=== PATIENT | male | born 1970 | race Caucasian/White ===

== ENCOUNTER 2016-07-08 01:05 | Emergency (ER) | payer MEDICAID ==
[~2016-07-08] VITALS: Ht 157.5 cm; Wt 95.5 kg
[2016-07-08 02:04] VITALS: Ht 157.5 cm; Wt 95.5 kg
[2016-07-08] MEDS ORDERED: IBUPROFEN 600 MG TAB PO ONE (03:30)
[2016-07-08] MEDS ORDERED: hydrOXYzine HCL 100 MG INJ IM ONE (03:30)
--- NOTE | 2016-07-08 03:40 | ERD ---
ER Documentation Chief Complaint Date/Time DATE: 07/08/16 Chief Complaint Unable to sleep HPI The patient is a 45-year-old male who presents to the Emergency Department with complaint of difficulty sleeping for the past 6 days. Over the past week, he has been having a difficult time falling asleep, and once he falls asleep, he has been having a difficult time staying asleep for greater than 2-3 hours at a time. The patient states that he has been more anxious over the past several weeks, which has been made worse by his difficulty sleeping. He denies any current suicidal ideation, homicidal ideation, hallucinations or delusions. Denies recent drug use. Denies any chest pain, palpitations, shortness of breath. ROS All systems reviewed and are negative except as per history of present illness. Medications Home Meds Active Scripts Melatonin-Pyridoxine Hcl (Melatonin) 1-10 Mg Tablet, 1 TAB PO HS, #20 TAB Prov:VERNELL ELLIS PA-C 07/08/16 Hydroxyzine Hcl* (Hydroxyzine Hcl*) 50 Mg Tablet, 50 MG PO QHS Y for INSOMNIA, # 30 TAB Prov:VERNELL ELLIS PA-C 07/08/16 Allergies Allergies: Coded Allergies: No Known Allergy (Unverified , 07/08/16) Physical Exam Vitals Vital Signs Date Time Temp Pulse Resp B/P Pulse Ox O2 Delivery O2 Flow Rate FiO2 07/08/16 04:00 75 17 124/77 96 Room Air 07/08/16 02:04 97.7 84 20 126/72 98 Physical Exam Const: Well-developed, well-nourished, in no acute distress. Head: Atraumatic. Normocephalic. Eyes: Normal Conjunctiva ENT: Normal External Ears, Nose and Mouth. Neck: Supple. Full range of motion. Resp: Clear to auscultation bilaterally Cardio: Regular rate and rhythm, no murmurs Abd: Soft, non tender, non distended. Normal bowel sounds Skin: No petechiae or rashes Ext: No cyanosis, or edema Neur: Awake and alert Psych: Cooperative. Appropriate. Results 24 hrs Laboratory Tests Test 07/08/16 03:36 Bedside Glucose 102mg/dL Current Medications Medications (Trade) Dose Ordered Sig/Brinda Route PRN Reason Start Time Stop Time Status Last Admin Dose Admin Ibuprofen (Motrin) 600 mg ONCE ONCE PO 07/08/16 03:30 07/08/16 03:31 DC 07/08/16 03:45 Hydroxyzine HCl (Vistaril Inj) 50 mg ONCE ONCE IM 07/08/16 03:30 07/08/16 03:31 DC 07/08/16 03:53 Procedures/MDM Discussed patient case with Dr. Pineda, ED supervising physician, who recommends that the patient be discharged home. He may be given rx for Hydroxyzine, and advised to follow up with primary medical provider as an outpatient. Given that patient is denying suicidal and homicidal ideation, with no current signs of danger to self or others, no indication for emergent psychiatry evaluation at this time. MEDICAL DECISION MAKING: This is a 45-year-old male presenting to the Emergency Department with difficulty sleeping for the past week. He had no significant abnormalities on physical examination. Vital signs were normal. Accucheck 102. The patient has no acute medical complaints or concerns. He has no associated suicidal ideation, homicidal ideation, delusions, visual or auditory hallucinations. No evidence of acute psychosis or any other emergent medical condition. Discussed appropriate sleep hygiene, including maintaining a regular sleep schedule, avoid caffeinated beverages/alcohol in the late afternoon/evening, avoiding smoking, avoiding prolonged use of screens prior to bedtime. At this time the patient is stable for discharge home. He is given a prescription for Hydroxyzine and Melatonin and given strict return precautions for signs of deteriorating or worsening condition. He is advised to follow up with his primary medical provider for re-evaluation and further management within 1-2 days or return to the ER sooner for any new or worsening symptoms. At the time of discharge, all questions were answered. Departure Diagnosis: Primary Impression: Difficulty sleeping Condition: Stable Patient Instructions: Insomnia, Treating Insomnia, What Is Insomnia? Additional Instructions: Llame al doctor MAANA y leonard brenda YOLETTE PARA DENTRO DE 1-2 BURKS.Dgale a la secretaria que nosotros le instruimos hacer esta yolette.Avise o llame si bryant condicin se empeora antes de la yolette. Regresa aqui si peor o no mejor. VERNELL ELLIS PA-C Jul 08, 2016 03:40
[2016-07-08] MEDS ORDERED: HYDR-3012 PO (03:44)
[2016-07-08] MEDS ORDERED: MELA1TAB9 PO (03:45)
[2016-07-08 04:00] VITALS: BP 124/77; PULSE 75; RESP 17
== END 2016-07-08 03:55 | disposition home or self-care (01) ==
LOC: FTE 01:05
DX: G47.00 Insomnia, unspecified (principal)
CPT/HCPCS: 82962; 96372; J3410; Z7502; Z7610